=== PATIENT | female | born 1975 | race Caucasian/White ===

== ENCOUNTER 2025-01-11 09:46 | Outpatient (AMB) | payer OTHER, SELFPAY ==
--- OUTSIDE RECORDS SUMMARY | 2025-01-11 10:16 | XMS_ITS | Clinical Summary ---
[facility] Organization [facility] Address [address] [place] [address] Care Team Providers Care Chamfering Machine Operator Name Role Phone Vianca Damon MD Unavailable [phone] Vianca Damon MD Primary Care Provider [phone] Allergies No known active allergies Medications fluticasone propionate (FLONASE) 50 mcg/actuation nasal spray USE 1 SPRAY INTRANASALLY DAILY ADMINISTER INTO EACH NOSTRIL 4 Active SUMAtriptan (IMITREX) 100 mg tablet 4 Active Junel 1.5/30, 21, 1.5-30 mg-mcg tablet 4 Active ibuprofen 800 mg tablet TAKE 1 TABLET BY MOUTH THREE TIMES A DAY NEEDED FOR PAIN 3 Active cetirizine (ZyrTEC) 10 mg tablet Take 10 mg by mouth in the morning. 3 Active cholecalciferol , vitamin D3, (Vitamin D3) 50 mcg (2,000 unit) tablet Take by mouth. Ac tive omeprazole (PriLOSEC) 20 mg capsule Take 20 mg by mouth in the morning. Active magnesium oxide 500 mg magnesium tablet Take by mouth. Activ e riboflavin, vitamin B2, 400 mg tablet Take by mouth. Activ e co-enzyme Q-10 30 mg capsule Take 30 mg by mouth in the morning and 30 mg at noon and 30 mg before bedtime. Active cranberry extract 425 mg capsule Take by mouth. Activ e ELDERBERRY FRUIT ORAL Take by mouth. Acti ve TERRI LEAF, BULK, MISC Active b complex vitamins capsule Take 1 capsule by mouth in the morning. Active glucosamine-cho ndroitin (Osteo Bi-Flex) 250-200 mg tablet Take by mouth. Activ e multivitamin with folic acid (THERAGRAN) 400 mcg tablet Take 1 tablet by mouth in the morning. Active calcium carbonate (TUMS) 200 mg calcium (500 mg) chewable tablet Take by mouth daily. 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 She states that foods now smell disgusting to her where they used to smell quite good previously. Patient has a history of having had smell loss associated with the COVID infection in 2020. At that time she did lose her smell but regained it almost back to normal when she suffered a concussion in 2021 and since that time patient has noticed a parosmia. Normal smells smells disgusting to her and it has really affected her appetite. She has had a normal CT scan. Patient does have a history of reflux and is on reflux medication. I did talk with her about olfactory training and we will get that started for her with the protocol as listed below. Patient does have propane heating for the house. I did talk to her about getting a natural gas detector that she can buy at [employer] or [employer]. If the patient puts food in the refrigerator she should put the date on it and anything more than 7 days should get looked at suspiciously. I did tell the patient there were new therapy such as platelet rich plasma injections but we have not begun to do that yet. We will get her scheduled for a smell test as soon as we are up and running later this summer. Home Smell Therapy Kit Items to Purchase: 4 ? brown/cecile glass jars? (Size: 50 mL or 2 oz) Cotton Pads/Balls Essential Oils Sandy ([place]) Lemon (Fruity) Clove (Aromatic) Eucalyptus (Resinous) Preparation: Label each jar with one of the essential oils On cotton balls/pads, place 1 mL of each essential oil Place the cotton ball/pad in the jar and store away from sunlight Directions for Use: Sniff EACH odor TWICE a day (morning & night) Smell each odor for 15 seconds then wait 10 seconds between odors After three months change oils to the following Menthol Thyme [place] Shayna Use new oils for an additional three months then change to the following Green Tea Bergamot Diane Whit Use these three for an additional 3 months Post covid-19 condition, unspecified 05/11/2024 Assessment & Plan (05/11/2024 12:10 PM EDT): Patient did have COVID in 2020 she has smell loss that lasted for approximately a year after. History of concussion 05/11/2024 Assessment & Plan (05/11/2024 12:11 PM EDT): Patient has a history of concussion that occurred in 2021 she has had decreased and change in her sense of smell that occurred after that. This may have been due to trauma to the olfactory bulbs secondary to coup countercoup movement of the brain. She is recovering but now has a parosmia. Will try and treat her with smell therapy. Social History Tobacco Use Types Packs/Day Years Used Date Smoking Tobacco: Former Cigarettes Smokeless Tobacco: Never Tobacco Cessation:Counseling Given: Not Answered Comments Unknown Sex and Gender Information Value Date Recorded Sex Assigned at Not on file Legal Sex Female 12:32 PM EDT Gender Identity Not on file Sexual Orientation Not on file Last Filed Vital Signs Vital Sign Reading Time Taken Comments Blood Pressure 125/75 05/11/2024 11:24 AM EDT Pulse 91 05/11/2024 11:24 AM EDT Temperature - - Respiratory Rate - - Oxygen Saturation - - Inhaled Oxygen Concentration - - Weight 68 kg (150 lb) 05/11/2024 11:24 AM EDT Height 162.6 cm (5' 4 ) 05/11/2024 11:24 AM EDT Body Mass Index 25.75 05/11/2024 11:24 AM EDT Plan of Treatment Health Maintenance Due Date Last Done Comments Breast Cancer Screening 1976 CT Colonography 1976 Colonoscopy 1976 Colorectal Cancer Screening 1976 FIT-DNA (Cologuard) 1976 FIT 1976 FOBT 1976 Flex Sigmoidoscopy - 5y 1976 HIV Screening 1976 DTaP,Tdap,and Td Vaccines (1 - Tdap) 1994 Hepatitis C Screening 1994 Hepatitis B Vaccines (1 of 3 - 19+ 3-dose series) 1995 Pap Smear 1997 Cervical Cancer Screening 2006 HPV/Cotest 2006 COVID-19 Vaccine (1 - 2023-2 5 season) 2024 Influenza Vaccine (#1) 2024 Zoster Vaccines (1 of 2) 2026 HPV Vaccines Aged Out No longer eligi ble based on patient's age to complete this topic Hepatitis A Vaccines Aged Out No long er eligible based on patient's age to complete this topic MMR Vaccines Aged Out No longer eligi ble based on patient's age to complete this topic Meningococcal Vaccine Aged Out No kaiden marisol eligible based on patient's age to complete this topic Pneumococcal Vaccine: Pediat rics (0 to 5 Years) and At-Risk Patients (6 to 64 Years) Aged Out No longer eligible b ased on patient's age to complete this topic Insurance [employer] Care Teams Chamfering Machine Operator Relationship Specialty Start Date End Date Vianca Damon MD [address] [place] [phone] PCP - Insurance Payer PCP 05/09/24 Vianca Damon MD [address] [place] [phone] PCP - General Internal Medicine 05/09/24
--- OUTSIDE RECORDS SUMMARY | 2025-01-11 10:16 | XMS_ITS | Clinical Summary ---
Author Organization Formerly [facility] Address [address] [place] [address] Care Team Providers Care Certified Medical Biller Name Role Phone Pcp, No Primary Care Provider Unavailabl e Social History Tobacco Use Types Packs/Day Years Used Date Smoking Tobacco: Never Assessed Sex and Gender Information Value Date Recorded Sex Assigned at Not on file Gender Identity Not on file Sexual Orientation Not on file Plan of Treatment Health Maintenance Due Date Last Done Comments Hepatitis C Virus Screening 1976 HIV Screening 1989 DTaP/Tdap/Td Vaccines (1 - Tdap) 1995 Hepatitis B Vaccines (1 of 3 - 19+ 3-dose series) 1995 Pap Smear (Ages 21-65) 1997 Mammogram 2016 Colonoscopy 2021 Influenza Vaccine 06/28/2024 COVID-19 Vaccine (2023-2 5 season) 2024 Pneumococcal Vaccine: Pediat kei (0-5 Years) and At-Risk Patients (6 to 49 Years) Aged Out No longer eligible b ased on patient's age to complete this topic Care Teams Certified Medical Biller Relationship Specialty Start Date End Date Pcp, No PCP - General General Medicine 04/17/24
--- OUTSIDE RECORDS SUMMARY | 2025-01-11 10:16 | XMS_ITS ---
Author Name [facility] Organization Unknown History of Medication Use Medication Directions Dispensed Refills Start Date End Date Stat ibuprofen 800 mg tablet TAKE 1 TABLET BY MOUTH THREE TIMES A DAY NEEDED FOR PAIN 11/23/2023 active co-enzyme Q-10 30 mg capsule Take 30 mg by mouth in the morning and 30 mg at noon and 30 mg before bedtime. active omeprazole (PriLOSEC) 20 mg capsule Take 20 mg by mouth in the morning. active SUMAtriptan (IMITREX) 100 mg tablet 04/28/2024 active riboflavin, vitamin B2, 400 mg tablet Take by mouth. act rafaela Problems Problem Status Onset Date Problem Type Date of Resoluti on Source Post covid-19 condition, unspecified active 2024-05-11 ProblemAct [facility] Parosmia active 2024-05-11 ProblemAct [facility] History of concussion active 2024-05-11 ProblemAct [facility]
--- NOTE | 2025-01-11 10:31 | MHC.PC.OV ---
Vital Signs 01/11/25 10:56 Height 5 ft 4 in Weight 132 lb 8 oz BMI 22.7 BP 100/60 Blood Pressure Location Lt brachial Position Sitting Respiration 14 Pulse 91 Pulse Source Pulse Oximeter Temp 98.6 F Temp Source Oral Pulse Oximetry (%) 99 Oxygen Delivery Method Room Air Intake Visit Reasons: [employer]/Est Care Allergies ciprofloxacin [From Cipro] Adverse Reaction (Intermediate, Verified 01/11/25 10:48) Vomiting codine Adverse Reaction (Severe, Uncoded 01/11/25 10:48) Vomiting Medication List - Last Reconciled 01/11/25 by Lauro Dior MD cranberry extract 200 mg PO DAILY ibuprofen 800 mg PO Q8H PRN 90 days omeprazole 10 mg PO DAILY Saccharomyces boulardii (Daily Probiotic (S. boulardii)) 250 mg PO BID HPI [employer]/Est Care HPI Details New Patient? ?? Prior PCP:?Dr Banks [facility] Last office visit/CPE:? Nov 2023 Acute issue(s):? Perimenopause, Bilateral arm pain - will be seeing specialist at pain clinic - uses gabapentin ?? PMHx:? 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 Dad: CVA, EtOH. mGM: EtOH. 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 EtOH 1-2 drinks a couple times a year. MJ Gummies at bedtime. [facility] Medical History (Updated 01/11/25 @ 11:36 by Shadi Fuller) Head injury Tricia-menopausal delivery delivered Pineal gland cyst UTI (urinary tract infection) GERD (gastroesophageal reflux disease) Migraine IBS (irritable bowel syndrome) Surgical History (Updated 01/11/25 @ 10:40 by Raulito Jerez CMA) History of dermoid cyst excision History of cholecystectomy Family History (Updated 01/11/25 @ 10:45 by Raulito Jerez CMA) Mother High blood pressure Maternal Grandmother High blood pressure Alcohol-induced persisting dementia Alcohol abuse Maternal Grandfather Lung cancer Alcohol abuse Paternal Grandmother Cervical cancer Alcohol abuse Paternal Grandfather Suicide Family/Other FH: mental illness Father Alcohol abuse Social History (Updated 01/11/25 @ 10:45 by Raulito Jerez [facility]) Use of substances other than those prescribed or required for medical reasons: No Substance Use Type: Marijuana Questionnaire PHQ-9 Over the last 2 weeks, how often have you been bothered by any of the following problems? 1. Little interest or pleasure in doing things: not at all 2. Feeling down, depressed, or hopeless: not at all 3. Trouble falling or staying asleep, or sleeping too much: not at all 4. Feeling tired or having little energy: not at all 5. Poor appetite or overeating: not at all 6. Feeling bad about yourself - or that you are a failure or have let yourself or your family down: not at all 7. Trouble concentrating on things, such as reading the newspaper or watching television: not at all 8. Moving or speaking so slowly that other people could have noticed. Or the opposite - being so fidgety or restless that you have been moving around a lot more than usual: not at all 9. Thoughts that you would be better off or of hurting yourself in some way: not at all Total score: 0 Depression Screening Interpretation: Negative Depression Screening Done: Yes 37648 - PHQ-9 Billing: Yes Source: Developed by Drs. Javier Mora, Ayah Heredia, Maksim Lucio and colleagues, with an educational elvis from [employer]. Thrive Questionnaire Date Thrive assessed: 01/11/25 I am a: Patient What is your living situation today?: I have a steady place to live Within the past 12 months, did the food you bought not last and you didn't have the money to get more?: Never true Within the past 12 months, did you worry whether your food would run out before you got money to buy more?: Never true Do you have trouble paying for medicines?: No Do you have trouble getting transportation to medical appointments?: No Do you have trouble paying your heating and electricity bill?: No Do you have trouble taking care of your child, family member or friend?: No Do you have trouble with day-to-day activities such as bathing, preparing meals, shopping, managing finances, etc.?: No Are you currently unemployed and looking for a job?: No Are you interested in more education?: No Please select the resources that you would like help with: None Currently or been in a relationship where the following occur: I choose not to answer THRIVE Score: 0 AUDIT C Alcohol Use Questionnaire (AUDIT-C) 1. How often do you have a drink containing alcohol?: Never 3. How often do you have six or more drinks on one occasion?: Never Total Score: 0 Score Reviewed/Action Taken: Yes MILLY-7 AMB Questionnaire MILLY-7 Date MILLY - 7 assessed: 01/11/25 Feeling nervous, anxious, or on edge: 0 = Not at all Not being able to stop or control worryin = Not at all Worrying too much about different things: 0 = Not at all Trouble relaxin = Not at all Being so restless that it is hard to sit still: 0 = Not at all Becoming easily annoyed or irritable: 0 = Not at all Feeling afraid as if something awful might happen: 0 = Not at all Total MILLY-7 score (0-4 normal; 5-9 mild; 10-14 moderate; 15-21 severe): 0 Source: Developed by Drs. Javier Mora, Ayah Heredia, Maksim Lucio and colleagues, with an educational elvis from [employer]. MILLY-7 Assessment Billing MILLY-7 Assessment Tool: MILLY-7 Assessment 55063 Review of Systems Const Denies chills, Denies fatigue, Denies fever(s), Denies headache(s) and Denies weakness ENT Denies dizziness and Denies headache(s) Card Denies chest pain, Denies lightheadedness, Denies dyspnea and Denies other (Palpitations) Resp Denies cough, Denies dyspnea, Denies wheezing and Denies other ( shortness of breath) Musc Denies numbness and Denies tingling Neuro Denies dizziness, Denies headache(s), Denies numbness, Denies tingling, Denies paresthesias and Denies weakness Psych Denies anxiety and Denies depression Endo Denies fatigue Aller/Immun Denies wheezing Physical exam (Primary Care) PHQ-9: PHQ-9 Score PHQ-9: Total score 0 01/11/25 10:50 Depression Screening Interpretation: Negative Thrive Assessment: Date of Thrive Assessment Date Thrive assessed 01/11/25 01/11/25 10:50 Currently or been in a relationship where the following occur: I choose not to answer Const General: no acute distress and well developed Nutritional Appearance: well nourished Orientation/consciousness: patient oriented x3 [facility] Head: Yes normocephalic and Yes atraumatic Eyes General: appearance normal, both eyes and all related structures Pupils: Equal, round and reactive pupils present EOM: EOMs intact bilaterally Resp Effort & Inspection: normal respiratory effort Auscultation: clear to auscultation bilaterally Cardio Rate: regular rate Rhythm: regular rhythm Heart sounds: S1 normal heart sound present, S2 normal heart sound present, no gallops, no murmurs and no rubs Neuro General: patient oriented x3 and gait normal Cranial nerves: Yes Equal, round and reactive pupils present Psych Affect: normal affect Coding Level of Care Code New Pt Level 4 (89091) Diagnoses Tricia-menopausal N95.1 Migraine G43.909 GERD (gastroesophageal reflux disease) K21.9 Bilateral arm pain M79.601; M79.602 Head injury S09.90XA Anxiety F41.9 Frequent episodes of sinusitis J32.9 IBS (irritable bowel syndrome) K58.9 Chronic pain G89.29 Laboratory exam ordered as part of routine general medical examination Z00.00 Additional Codes MILLY-7 Assessment Billing - MILLY-7 Assessment Tool: MILLY-7 Assessment 63330 ([id number]) PHQ-9 - 52152 - PHQ-9 Billing: Yes ([id number]) Assessment & Plan Assessment & Plan (1) Tricia-menopausal: Code(s): N95.1 - Menopausal and female climacteric states Category: Medical Plan: Patient?is?taking?supplements?and?followed?by?her?obgyn nurse. I?did?mention?that?there?is?a?newer?medication?called Veozah for?hot?flashes?she?read?this. She?can?let?know?if?she?wants?to?try?this?medication?or?can?discuss?with?her?obgyn nurse (2) Migraine: Code(s): G43.909 - Migraine, unspecified, not intractable, without status migrainosus Category: Medical Plan: Chronic?migraines Uses Triptans?for?this.??She?had?tried?Lamictal?which?she?had?very?bad?reactions?to She?can?let?know?if?she?wants?to?consider?additional?treatments?or?referral?to?a?specialist (3) GERD (gastroesophageal reflux disease): Code(s): K21.9 - Gastro-esophageal reflux disease without esophagitis Category: Medical Plan: Continue?PPI (4) Bilateral arm pain: Code(s): M79.601 - Pain in right arm; M79.602 - Pain in left arm Category: Medical Plan: Bilateral?arm?pain?and?other?chronic?pain?issues?for?which?she?is?going?to?be?seeing?pain?specialist He?is?on?gabapentin?which?is?helping No?neck?problems Unclear?cause Briefly?discussed?some?of?the?locations?opinion?that?she?had?referred?to?could?represent?fibromyalgia She?can?continue?gabapentin,?continue?exercise,?follow-up?with?specialist She?will?let?know?if?he?is?still?having?difficulty (5) Head injury: Code(s): S09.90XA - Unspecified injury of head, initial encounter Category: Medical Plan: History?of?head?injury Currently?stable (6) Anxiety: Code(s): F41.9 - Anxiety disorder, unspecified Category: Medical Plan: Patient?has?numerous?stressors She?has?a?therapist She?can?let?know?if?she?wants?to?discuss?further?interventions (7) Frequent episodes of sinusitis: Code(s): J32.9 - Chronic sinusitis, unspecified Category: Medical Plan: Currently?stable (8) IBS (irritable bowel syndrome): Code(s): K58.9 - Irritable bowel syndrome, unspecified Category: Medical Plan: Often?associated?with?high?stress?and?anxiety She?can?let?me?know?if?further?interventions (9) Chronic pain: Code(s): G89.29 - Other chronic pain Category: Medical Plan: As?above,?patient?is?gabapentin She?has?an?remain?with?pain?specialist (10) Laboratory exam ordered as part of routine general medical examination: Code(s): Z00.00 - Encounter for general adult medical examination without abnormal findings Category: Medical Plan: Check?labs Orders: Orders Microalbumin, Random (w Creat) Today I10 - Essential (primary) hypertension UA and rflx microscopic Today Z00.00 - Encounter for general adult medical examination without abnormal findings Vitamin D 25-OH Total Today E55.9 - Vitamin D deficiency, unspecified Complete Blood Count Auto Diff Today Z00.00 - Encounter for general adult medical examination without abnormal findings Vitamin B12 and Folate Today E53.8 - Deficiency of other specified B group vitamins Comprehensive [place]. Panel Fast Today Z00.00 - Encounter for general adult medical examination without abnormal findings Lipid Panel Today Z00.00 - Encounter for general adult medical examination without abnormal findings TSH reflex Free T4 Today Z00.00 - Encounter for general adult medical examination without abnormal findings Medications: New ibuprofen 800 mg PO Q8H 90 days PRN 270 tabs 2RF pain
[2025-01-11 10:56] VITALS: BP 100/60; PULSE 91; RESP 14; TEMP 37; O2SAT 99; BMI 22.7
== END 2025-01-11 11:43 | disposition home or self-care (01) ==
PROVIDERS: Visit Provider Family Medicine
DX: N95.1 Menopausal and female climacteric states (principal); G43.909 Migraine, unspecified, not intractable, without status migrainosus; K21.9 Gastro-esophageal reflux disease without esophagitis; M79.601 Pain in right arm; M79.602 Pain in left arm; S09.90XA Unspecified injury of head, initial encounter; F41.9 Anxiety disorder, unspecified; J32.9 Chronic sinusitis, unspecified; K58.9 Irritable bowel syndrome, unspecified; G89.29 Other chronic pain; Z00.00 Encounter for general adult medical examination without abnormal findings; Z23 Encounter for immunization

== ENCOUNTER → 2025-01-11 09:46 | Outpatient (BNVA) | payer OTHER, SELFPAY | PROVIDERS: Visit Provider Family Medicine | DX: N95.1 Menopausal and female climacteric states (principal); G43.909 Migraine, unspecified, not intractable, without status migrainosus; Z23 Encounter for immunization; K21.9 Gastro-esophageal reflux disease without esophagitis; M79.601 Pain in right arm; M79.602 Pain in left arm; S09.90XD Unspecified injury of head, subsequent encounter; F41.9 Anxiety disorder, unspecified; J32.9 Chronic sinusitis, unspecified; K58.9 Irritable bowel syndrome, unspecified; G89.29 Other chronic pain; Z79.899 Other long term (current) drug therapy | CPT/HCPCS: 90471; 90656; 96127 ==

== ENCOUNTER 2025-02-01 09:56 | Outpatient (REF) | payer OTHER, SELFPAY ==
--- OUTSIDE RECORDS SUMMARY | 2025-02-01 11:08 | XMS_ITS | Clinical Summary ---
Author Organization [facility]ly [facility] Address [address] [place] [address] Care Team Providers Care Behavior Support Specialist Name Role Phone Pcp, No Primary Care [...] age to complete this topic Care Teams Behavior Support Specialist Relationship Specialty Start Date End Date Pcp, No PCP - General General Medicine 04/17/24
--- OUTSIDE RECORDS SUMMARY | 2025-02-01 11:08 | XMS_ITS | Clinical Summary ---
Author Organization [facility]ly [facility] Address [address] [place] [address] Care Team Providers Care Sap Business Intelligence Consultant Name Role Phone Vianca Damon MD Unavailable Vianca Damon MD Primary Care Provider [phone] Allergies No known active allergies Medications [...] gas detector that she can buy at [employer] or [employer]. If the patient puts food in the [...] 2 oz) Cotton Pads/Balls Essential Oils Sandy ([place]) Lemon (Fruity) Clove (Aromatic) Eucalyptus (Resinous) Preparation: [...] change oils to the following Menthol Thyme [place] Shayna Use new oils for an additional [...] this topic Insurance [employer] Care Teams Sap Business Intelligence Consultant Relationship Specialty Start Date End Date Vianca Damon MD [address] [place] [phone] PCP - Insurance Payer PCP 05/09/24 Vianca Damon MD [address] [place] [phone] PCP - General Internal Medicine 05/09/24
[2025-02-01 11:21] LABS: MANUAL DIFF FLAG NO
[2025-02-01 11:32] LABS: Appearance Urine Clear; Color Urine Yellow; Glucose Urine UA Negative (Negative); Leukocyte Esterase Urine Negative (Negative); Nitrite Urine Negative (Negative); PH 7.5 (5.0-9.0); Specific Gravity - Urine <= 1.005 (1.005-1.025); Urine Blood Negative (Negative); Urine Ketones Negative (Negative); Urine Protein Negative (Neg-Trace)
[2025-02-01 11:45] LABS: Basophils Percent Auto 0.5 % (0-2); Eosinophils Absolute Auto 0.2 X10*3/uL (0.0-0.4); Eosinophils Percent Auto 2.5 % (0-4); Hematocrit 42.4 % (37.0-47.0); Hemoglobin 13.7 g/dl (12.0-16.0); Imm Gran Abs Auto 0.01 X10*3/uL (0.00-0.03); Imm Gran Pct Auto 0.2 % (0.0-0.4); Lymphocytes Absolute Auto 2.9 X10*3/uL (1.2-4.9); Mean Corpuscular HGB Conc 32.3 g/dl (31.0-35.0); Mean Corpuscular Hemoglobin 30.9 pg (27.0-33.0); Mean Corpuscular Volume 95.5 fL (80.0-98.0); Mean Platelet Volume 10.4 fL (9.4-12.3); Monocytes Absolute Auto 0.4 X10*3/uL (0.1-1.2); Neutrophils Absolute Auto 2.5 x10*3/uL (2.0-8.3); Neutrophils Percent Auto 41.8 % (45-73); Platelet Count 394 X10*3/uL (160-400); Red Blood Count 4.44 X10*6/uL (4.20-5.50); Red Cell Distribution Width 12.3 % (11.0-16.0)
[2025-02-01 12:29] LABS: Alanine Aminotransferase 23 U/L (0-31); Albumin Level 4.1 g/dL (3.5-5.0); Alkaline Phosphatase 61 U/L (39-117); Anion Gap 11 (12-20); Aspartate Amino Transferase 29 U/L (5-31); Bilirubin Total 0.5 mg/dL (0.0-1.0); Blood Urea Nitrogen 15 mg/dL (9-16); Calcium 9.2 mg/dL (8.4-10.2); Carbon Dioxide 27 mmol/L (22-29); Chloride 105 mmol/L (96-108); Cholesterol 163 mg/dL (<200); Estimated Glomerular Filt Rate > 60; Glucose Fasting 87 mg/dL (60-99); HDL Cholesterol 46 mg/dL (>40); LDL Cholesterol Calculated 94 mg/dL (<100); Potassium 3.8 mmol/L (3.3-5.1); Sodium 139 mmol/L (135-145); Total Protein 7.8 g/dL (6.5-8.0); Triglycerides 115 mg/dL (<150)
[2025-02-01 12:36] LABS: Microalbumin Urine < 5.0 mg/L
[2025-02-01 12:48] LABS: TSH reflex Free T4 0.99 uIU/mL (0.32-4.0)
[2025-02-01 12:54] LABS: Folate 16.9 ng/mL (> or = 4.0); Vitamin B12 1084 pg/mL (200-900)
== END 2025-02-01 09:57 | disposition home or self-care (01) ==
LOC: HO.WFDLDS 09:56
PROVIDERS: Visit Provider Family Medicine
DX: Z00.00 Encounter for general adult medical examination without abnormal findings (principal); E53.8 Deficiency of other specified B group vitamins; I10 Essential (primary) hypertension; E55.9 Vitamin D deficiency, unspecified
CPT/HCPCS: 36415; 80053; 80061; 81003; 82043; 82306; 82570; 82607; 82746; 84443; 85025

== ENCOUNTER 2025-03-15 09:03 | Outpatient (AMB) | payer OTHER, SELFPAY ==
--- NOTE | 2025-03-15 09:04 | A.OFFPC_ITS ---
Vital Signs 03/15/25 09:09 Height 5 ft 4 in Weight 133 lb 6 oz BMI 22.9 BP 122/70 Blood Pressure Location Lt brachial Position Sitting Respiration 12 Pulse 79 Pulse Source Pulse Oximeter Temp 97.5 F Temp Source Oral Pulse Oximetry (%) 100 Oxygen Delivery Method Room Air Intake Visit Reasons: CPE - Dr. Arndt pt. Intake Note: CPE Phone Operator Required: No Allergies ciprofloxacin [From Cipro] Adverse Reaction (Intermediate, Verified 03/15/25 09:15) Vomiting codine Adverse Reaction (Severe, Uncoded 03/15/25 09:15) Vomiting Medication List - Last Reconciled 03/15/25 by Briana Nugent, RN MDS COORDINATOR-BC amino acid-multivit w/iron-min pkgs PO cetirizine (Zyrtec) 10 mg PO DAILY PRN cholecalciferol (vitamin D3) 25 mcg PO DAILY coenzyme Q10 60 mg PO DAILY collagen (bovine) 100% ea topical cranberry extract 200 mg PO DAILY elderberry fruit mg PO fluticasone furoate 27.5 mcg/actuation (Flonase Sensimist) 1 spray intranasal DAILY gabapentin 300 mg PO DAILY ibuprofen 800 mg PO Q8H PRN 90 days ibuprofen 800 mg PO Q8H magnesium 200 mg PO DAILY multivitamin 1 tab PO DAILY omeprazole 10 mg PO DAILY riboflavin (vitamin B2) mg PO Saccharomyces boulardii (Daily Probiotic (S. boulardii)) 250 mg PO BID sumatriptan succinate take 1 tab at onset of headache; if no relief may repeat 1 tab after at least 2 hrs; max = 4 tabs/24 hr PO vitamin B complex (B-Complex tablet) 1 tab PO DAILY Tobacco use date assessed: 03/15/25 Dental Screening Dental Screen Date: 03/15/25 Did you have a dental visit in the last 12 months?: Yes Did you have a dental problem in the last 6 months where you did not have access to dental care?: No Was dental information given to patient?: Patient has dentist HPI HPI Comments History of Present Illness Details 49 y/o F with Migraines, Head injury, p erimenopause, anosmia d/t head injury, Frequent Sinus infections, GERD, MILLY, Seasonal allergies, BPPV SurgHx: Pylonidal cysyt Ovarian dermoid cysts, GB, C-sect x 2 FHx: Mom: HTN, IBS. Dad: CVA, EtOH. mGM: EtOH. 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 EtOH 1-2 drinks a couple times a year. MJ Gummies at bedtime. Health Maintenance: Colon done in 's, no family hx; Declined colon; cologaurd ordered Mammo done, 11/20 or 11/2024 , report requested DEXA n/a PAP done by INVENTORY AUDIT CLERK Tdap declined Flu 2024 Specialists: Air Analysis Technician Counslor Pain mgmt PT bilat arm pain, better. Neuro Here today for CPE Patient of Dr Arndt - The patient is a 49-year-old female pr esenting for a complete physical examination with concerns of chronic migraines exacerbated by perimenopause, vertigo episodes suggestive of BPPV, severe GERD episode in recent months, and sinus infection history requiring ongoing management. 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 - Vertigo symptoms initiated by position al change; when turns head to the side sx start; head in neutral position resolves; this has been going on for some time; Sx are suggestive of BPPV. - Severe GERD episode reported in Januar y resulted in vomiting due to stress and high-fat diet; managed with omeprazole. - Dumping syndrome symptoms follow shaheed cystectomy, relate to dietary habits and stress. - Significant history of head trauma wit h persistent anosmia and altered dietary choices - Adverse reaction to lamotrigine given for mood and headaches in the past by previous PCP - Existing social stress factors include caregiving for a spouse with multiple chronic conditions and children with special psychological needs. - Perimenopausal symptoms include excess rafaela sweating and irregular bleeding; colon cancer screening discussed as Cologuard methodology acceptable due to prior colonoscopy experience. - Wears glasses for reading and distance . Family History - Positive for migraine headaches in mot her and grandmother - History of autism linked to son, sammie smiley indicator for familial preeclampsia Social History - Works as a therapist with a full-time private practice - Pursuing a doctorate in social work - Manages a household with significant c aregiving responsibilities for with chronic illness, an autistic son, and adolescent daughter with anxiety. - Engages in regular physical activity i ncluding strength training, cardio, and kickboxing approximately five to six times per week. 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 - HEENT: Denies current infections but f requent history; reports chronic anosmia post head trauma. - Neurological: Reports episodic vertigo without migraine occurrence, managed with sumatriptan; dizziness worsened by position changes. - Gastrointestinal: Reports dumping synd elizabeth post cholecystectomy; severe GERD episodes managed with omeprazole. - Musculoskeletal: Reports frequent infl ammation and previous shoulder pain, managed with physical therapy. - Psychiatric: Reports generalized anxie ty, primarily stress-induced, and current self-management of insomnia. - Reproductive: Reports perimenopausal s ymptoms including sweating and menstrual irregularities. Physical Exam General: Well developed, well nourished, in no acute distress. Appears stated age. Head: Normocephalic, atraumatic. Sebaceous cyst noted on the head. Eyes: Pupils are equal, round and reactive to light and accommodation. Conjunc tivae are clear. Vision grossly normal. Ears: TMs clear AU, EACS WNL Nose: Patent, without discharge. Neck: Supple, no adenopathy or thyromegaly. Breast: Edu on SBE Lungs: Clear to auscultation bilaterally. No rales, rhonchi or wheeze noted. Good air flow in all wilson. Heart: Regular rate and rhythm. No murmurs, click, rubs or gallops are noted. Abdomen: Bowel sounds present in all quadrants. The abdomen is soft, nontender, with no masses or organomegaly noted. No hernias are noted. : Deferred. Reviewed recommendations for routine INVENTORY AUDIT CLERK Pulses: Peripheral pulses are equal and palpable bilaterally. Extremities: No clubbing, cyanosis nor edema is noted. Neurologic: Gait and station normal. Cranial Nerves 2-12 intact. Motor strength grossly symmetrical and intact. No sensory loss. Balance normal. Skin: No rashes, ulcers, or lesions noted. Turgor is good. Skin color is good. Hair and nails are without abnormalities. Psych: Normal eye contact, affect and mood appropriate, and normal interactions. Patient is alert and appropriate to context. Results Labs 02/01/25 reviewed and WNL Discussion Notes I discussed the likely diagnosis of Benign Paroxysmal Positional Vertigo (BPPV) based on the patient?s description of episodic dizziness exacerbated by positional changes. I explained the non-migraine nature of these events despite previous neurological consultations. Management options including chiropractic and vestibular physical therapy were discussed. She wishes to pursue Chiro and will send her preferred provider via the portal; referral to be placed at that time. We reviewed the patient?s GERD management with the current regimen, emphasizing lifestyle modifications. The patient's experience with severe GERD was attributed to dietary triggers and emphasizing caution with stress management. We discussed colon cancer screening options due to the patient?s reluctance to repeat the colonoscopy preparation. I recommended a Cologuard home test for colorectal screening. I advised monitoring perimenopausal changes for management but no immediate interventions. I emphasized the importance of annual wellness checks and suggested organization of records from other healthcare [facility] into a centralized system, pending patient's submissions. The importance of managing stress levels and assisting the family unit with coping strategies was highlighted. I advised the patient to send chiropractic preferences via patient portal for referral. Forthcoming follow-up scheduled within a year unless acute issues arise. Assessment and Plan 1. Migraine headaches The patient continues with sumatriptan due to hormonally induced migraine relief. Additional stress and diet management reiterated. 2. Benign Paroxysmal Positional Vertigo (BPPV) Likely BPPV diagnosis explained; chiropractic therapy recommended. Patient to provide preference for referral. 3. Gastroesophageal Reflux Disease (GERD ) Continue omeprazole; discussed dietary adjustments. Reinforcement on GERD educat ion and reducing stressors. 4. Perimenopause Follow up with regular wellness checks and screenings. Watchful waiting for fluctuating symptoms. 5. Colon cancer screening Cologuard test will be utilized for the patient?s colon cancer screening needs. 6. Dumping syndrome Patient to monitor dietary intake post-cholecystectomy, maintain current management approach. 7. Generalized Anxiety Disorder Support continues with stress reduction prioritization; no pharmacological intervention currently required. Patient Instructions - Continue taking prescribed sumatriptan for migraine relief. - Engage in dietary mindfulness to manag e GERD and dumping syndrome. - Consider chiropractic referral for laverne tigo after providing preferences. - Engage in stress reduction techniques and self-care measures. - Arrange Cologuard test for colorectal cancer screening. - Maintain regular health checks and scr eenings, including mammograms and Pap smears. RTO [address] Yris Sanabria Patient was informed and verbally consented to the use of an ambient scribe for clinic note documentation during this visit. An additional 20 minutes was spent addressing the problem(s) noted at todays visit. This includes time spent before the visit reviewing the chart, time spent during the visit, and time spent after the visit on documentation reviewing laboratory results, diagnostic imaging, medications, performing a medically necessary evaluation, counseling on diagnoses, care coordination, ordering appropriate tests, ordering appropriate medications, review of tests performed by other providers, reporting test results with the patient, communication with other healthcare providers. [facility] Medical History (Updated 03/15/25 @ 14:46 by ANKUR Durant-SUZI) delivery delivered GERD (gastroesophageal reflux disease) Head injury IBS (irritable bowel syndrome) Migraine Tricia-menopausal Pineal gland cyst UTI (urinary tract infection) Surgical History (Updated 03/15/25 @ 09:25 by ANKUR Durant-SUZI) History of cholecystectomy History of colonoscopy (~2006) History of dermoid cyst excision Family History Mother High blood pressure Maternal Grandmother High blood pressure Alcohol-induced persisting dementia Alcohol abuse Maternal Grandfather Lung cancer Alcohol abuse Paternal Grandmother Cervical cancer Alcohol abuse Paternal Grandfather Suicide Family/Other FH: mental illness Father Alcohol abuse Social History (Updated 03/15/25 @ 09:06 by Radha Arana MA) Household Members: Family Both parents involved: No Caregiver staying overnight: No Housing: House Are you a primary nurse healthcare manager to a significant other at home: No Do you presently have visiting nurse or other home services: No 75 years or older and lives alone: No Alcohol intake: never Patient Tobacco Use Status: Never used Tobacco e-Cigarette/Vaping Use: Never Used Second Hand Smoke Exposure: No Substance Use Type: Marijuana service: No Current occupational status: unemployed Cognitive needs: No Hearing needs: No Vision needs: No Questionnaire PHQ-9 Over the last 2 weeks, how often have you been bothered by any of the following problems? 1. Little interest or pleasure in doing things: not at all 2. Feeling down, depressed, or hopeless: not at all 3. Trouble falling or staying asleep, or sleeping too much: not at all 4. Feeling tired or having little energy: not at all 5. Poor appetite or overeating: not at all 6. Feeling bad about yourself - or that you are a failure or have let yourself or your family down: not at all 7. Trouble concentrating on things, such as reading the newspaper or watching television: not at all 8. Moving or speaking so slowly that other people could have noticed. Or the opposite - being so fidgety or restless that you have been moving around a lot more than usual: not at all 9. Thoughts that you would be better off or of hurting yourself in some way: not at all Total score: 0 Depression Screening Interpretation: Negative Depression Screening Done: Yes 60034 - PHQ-9 Billing: Yes Source: Developed by Drs. Javier Mora, Ayah Heredia, Maksim Lucio and colleagues, with an educational elvis from [email or web address]. Thrive Questionnaire Date Thrive assessed: 03/15/25 I am a: Patient What is your living situation today?: I have a steady place to live Within the past 12 months, did the food you bought not last and you didn't have the money to get more?: Never true Within the past 12 months, did you worry whether your food would run out before you got money to buy more?: Never true Do you have trouble paying for medicines?: No Do you have trouble getting transportation to medical appointments?: No Do you have trouble paying your heating and electricity bill?: No Do you have trouble taking care of your child, family member or friend?: No Do you have trouble with day-to-day activities such as bathing, preparing meals, shopping, managing finances, etc.?: No Are you currently unemployed and looking for a job?: No Are you interested in more education?: No Please select the resources that you would like help with: None Currently or been in a relationship where the following occur: I choose not to answer THRIVE Score: 0 AUDIT C Alcohol Use Questionnaire (AUDIT-C) 1. How often do you have a drink containing alcohol?: Never 2. How many drinks containing alcohol do you have on a typical day when you are drinking?: 1 or 2 3. How often do you have six or more drinks on one occasion?: Never Total Score: 0 Score Reviewed/Action Taken: Yes MILLY-7 AMB Questionnaire MILLY-7 Date MILLY - 7 assessed: 03/15/25 Feeling nervous, anxious, or on edge: 0 = Not at all Not being able to stop or control worryin = Not at all Worrying too much about different things: 0 = Not at all Trouble relaxin = Not at all Being so restless that it is hard to sit still: 0 = Not at all Becoming easily annoyed or irritable: 0 = Not at all Feeling afraid as if something awful might happen: 0 = Not at all Total MILLY-7 score (0-4 normal; 5-9 mild; 10-14 moderate; 15-21 severe): 0 Source: Developed by Drs. Javier Mora, Ayah Heredia, Maksim Lucio and colleagues, with an educational elvis from [email or web address]. MILLY-7 Assessment Billing MILLY-7 Assessment Tool: MILLY-7 Assessment 38454 Physical exam (Primary Care) Vital Signs: Last Vital Signs Temp 97.5 F 03/15/25 09:09 Pulse 79 03/15/25 09:09 Resp 12 03/15/25 09:09 BP 122/70 03/15/25 09:09 Pulse Ox 100 03/15/25 09:09 Oxygen Delivery Method Room Air 03/15/25 09:09 BMI result Body Mass Index 22.9 Tobacco/Smoking Status: Tobacco use Status Tobacco use date assessed 03/15/25 03/15/25 09:09 Patient Tobacco Use Status Never used Tobacco 03/15/25 09:09 e-Cigarette/Vaping Use Never Used 03/15/25 09:09 PHQ-9: PHQ-9 Score PHQ-9: Total score 0 03/15/25 09:15 Depression Screening Interpretation: Negative Thrive Assessment: Date of Thrive Assessment Date Thrive assessed 03/15/25 03/15/25 09:05 Currently or been in a relationship where the following occur: I choose not to answer Coding Level of Care Code Est Pt Level 3 (92755) Est Pt Prev Care 40-64y(28627) Diagnoses Encounter for general adult medical examination with abnormal findings Z00.01 Gastroesophageal reflux disease without esophagitis K21.9 Esophagitis presence: without esophagitis Other chronic pain G89.29 Chronic pain type: other chronic pain Bilateral arm pain M79.601; M79.602 Anxiety F41.9 Benign paroxysmal positional vertigo due to bilateral vestibular disorder H81.13 Laterality: bilateral Tetanus, diphtheria, and acellular pertussis (Tdap) vaccination declined Z28.21 Additional Codes MILLY-7 Assessment Billing - MILLY-7 Assessment Tool: MILLY-7 Assessment 96040 ([id number]) PHQ-9 - 80340 - PHQ-9 Billing: Yes ([id number]) Assessment & Plan Assessment & Plan (1) Encounter for general adult medical examination with abnormal findings: Onset Date: ~02/2025 Code(s): Z00.01 - Encounter for general adult medical examination with abnormal findings Category: Medical (2) GERD (gastroesophageal reflux disease): Code(s): K21.9 - Gastro-esophageal reflux disease without esophagitis Category: Medical Qualifiers: Esophagitis presence: without esophagitis Qualified Code(s): K21.9 - Gastro-esophageal reflux disease without esophagitis (3) Chronic pain: Code(s): G89.29 - Other chronic pain Category: Medical Qualifiers: Chronic pain type: other chronic pain Qualified Code(s): G89.29 - Other chronic pain (4) Bilateral arm pain: Code(s): M79.601 - Pain in right arm; M79.602 - Pain in left arm Category: Medical (5) Anxiety: Code(s): F41.9 - Anxiety disorder, unspecified Category: Medical (6) BPPV (benign paroxysmal positional vertigo): Code(s): H81.10 - Benign paroxysmal vertigo, unspecified ear Category: Medical Qualifiers: Laterality: bilateral Qualified Code(s): H81.13 - Benign paroxysmal vertigo, bilateral (7) Tetanus, diphtheria, and acellular pertussis (Tdap) vaccination declined: Code(s): Z28.21 - Immunization not carried out because of patient refusal Category: Medical Plan . Orders: Referrals Cologuard Test Z12.11 - Encounter for screening for malignant neoplasm of colon, Z12.12 - Encounter for screening for malignant neoplasm of rectum Patient Instructions: Health screenings for women You should visit your health care provider from time to time, even if you are healthy. The purpose of these visits is to: Screen for medical issues Assess your risk for future medical problems Encourage a healthy lifestyle Update vaccinations and other preventive care services Help you get to know your provider in case of an illness Information Even if you feel fine, you should still see your provider for regular checkups. These visits can help you avoid problems in the future. For example, the only way to find out if you have high blood pressure is to have it checked regularly. High blood sugar and high cholesterol levels also may not have any symptoms in the early stages. A simple blood test can check for these conditions. There are specific times when you should see your provider or receive specific health screenings. The [place] Preventive Services Task Force publishes a list of recommended screenings. Below are screening guidelines for women ages 18 to 39. BLOOD PRESSURE SCREENING Your blood pressure should be checked at least once every 3 to 5 years if: Your blood pressure is in the normal range (top number less than 120 mm Hg and bottom number less than 80 mm Hg) You don't have risk factors for high blood pressure Ask your provider if you need your blood pressure checked more often if: The top number is 120 to 129 mm Hg or the bottom number is 70 to 79 mm Hg You have diabetes, heart disease, kidney problems, are overweight, or have certain other health conditions You have a first-degree relative with high blood pressure You are Black You had high blood pressure during a If the top number is 130 mm Hg or greater or the bottom number is 80 mm Hg or greater, this is considered stage 1 hypertension. Schedule an appointment with your provider to learn how you can reduce your blood pressure. Watch for blood pressure screenings in your area. Ask your provider if you can stop in to have your blood pressure checked. BREAST CANCER SCREENING Experts do not agree about the benefits of breast self-exams in finding breast cancer or saving lives. Talk to your provider about what is best for you. A screening mammogram is not recommended for most women under age 40. Your provider may discuss and recommend mammograms, MRI scans, or ultrasounds if you have an increased risk for breast cancer, such as: A mother or sister who had breast cancer at a young age (most often starting screening earlier than the age the close relative was diagnosed) You carry a high-risk genetic marker CERVICAL CANCER SCREENING Cervical cancer screening should start at age 21 years unless your provider advises otherwise. After the first test: Women ages 21 through 29 should have a Pap test every 3 years. Exoprts do not agree on whether HPV testing is recommended for this age group. Women ages 30 through 65 should be screened with either a Pap test every 3 years or the HPV test every 5 years or both tests every 5 years (called cotesting ). Women who have been treated for precancer (cervical dysplasia) should continue to have Pap tests for 20 years after treatment or until age 65, whichever is kaiden marisol. If you have had your uterus and cervix removed (total hysterectomy), and you have not been diagnosed with cervical cancer or precancer (high grade cervical neoplasia), you do not need cervical cancer screening. CHOLESTEROL SCREENING Cholesterol screening should begin at: Age 45 for women with no known risk factors for coronary heart disease Age 20 for women with known risk factors for coronary heart disease Repeat cholesterol screening should take place: Every 5 years for women with normal cholesterol levels More often if changes occur in lifestyle (including weight gain and diet) More often if you have diabetes, heart disease, kidney problems, or certain other conditions DIABETES SCREENING You should be screened for diabetes starting at age 35 and then repeated every 3 years if you have no risk factors for diabetes. Screening may need to start earlier and be repeated more often if you have other risk factors for diabetes, such as: You have a first degree relative with diabetes. You are overweight or have obesity. You have high blood pressure, prediabetes, or a history of heart disease. Screening for diabetes should be done if you are planning to become and you are overweight and have other risk factors such as high blood pressure. DENTAL EXAM Go to the dentist once or twice every year for an exam and cleaning. Your dentist will evaluate if you need more frequent visits. EYE EXAM Have an eye exam every 5 to 10 years before age 40. If you have vision problems, have an eye exam every 2 years or more often if recommended by your provider. You should have an eye exam that includes an examination of your retina (back of your eye) at least every year if you have diabetes. IMMUNIZATIONS Commonly needed vaccines include: Flu shot: get one every year. COVID-19 vaccine: ask your provider what is best for you. Tetanus-diphtheria and acellular pertussis (Tdap) vaccine: have one at or after age 19 as one of your tetanus-diphtheria vaccines if you did not receive it as an adolescent. Tetanus-diphtheria: have a booster (or Tdap) every 10 years. Varicella vaccine: receive 2 doses if you never had chickenpox or the varicella vaccine. Hepatitis B vaccine: receive 2, 3, or 4 doses, depending on your exact circumstances. Measles, mumps, and rubella (MMR) vaccine: receive 1 to 2 doses if you are not already immune to MMR. Your provider can tell you if you are immune. Ask your provider about the human papillomavirus (HPV) vaccine if: You have not received the HPV vaccine in the past You have not completed the full vaccine series (you should catch up on this shot) Ask your provider if you should receive other immunizations if you have certain health problems that increase your risk for some diseases such as pneumonia. INFECTIOUS DISEASE SCREENING Women who are sexually active should be screened for chlamydia and gonorrhea up until age 25. Women 25 years and older should be screened for chlamydia and gonorrhea if at high risk. Screening for hepatitis C: All adults ages 18 to 79 should get a one-time test for hepatitis C. people should be screened at every . Screening for human immunodeficiency virus (HIV): All people ages 15 to 65 should get a one-time test for HIV. Depending on your lifestyle and medical history, you may also need to be screened for infections such as syphilis and HIV, as well as other infections. PHYSICAL EXAM All adults should visit their provider from time to time, even if they are healthy. The purpose of these visits is to: Screen for disease Assess your risk of future medical problems Encourage a healthy lifestyle Update your vaccinations and other preventive care services Maintain a relationship with a provider in case of an illness Your height, weight, and BMI should be checked at every exam. During your exam, your provider may ask you about: Depression and anxiety Diet and exercise Alcohol and tobacco use Safety issues, such as using seat belts, smoke detectors, and intimate partner violence Your medicines and risk for interactions SKIN SELF-EXAM Your provider may check your skin for signs of skin cancer, especially if you're at high risk, such as if you: Have had skin cancer before Have close relatives with skin cancer Have a weakened immune system OTHER SCREENING Talk with your provider about colon cancer screening if you have a strong family history of colon cancer or polyps, or if you have had inflammatory bowel disease or polyps yourself. Routine bone density screening of women under 40 is not recommended.
[2025-03-15 09:09] VITALS: BP 122/70; PULSE 79; RESP 12; TEMP 36.4; O2SAT 100; BMI 22.9
--- OUTSIDE RECORDS SUMMARY | 2025-03-15 09:29 | XMS_ITS | Clinical Summary ---
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 Phone Pcp, No Primary Care Provider Unavailabl e Social History Tobacco Use Types Packs/Day Years Used Date Smoking Tobacco: Never Assessed Comments Unknown Sex and Gender Information Value Date Recorded Sex Assigned at Not on file Legal Sex Female 1:57 PM EDT Gender Identity Not on file Sexual Orientation Not on file Plan of Treatment Health Maintenance Due Date Last Done Comments Hepatitis C Virus Screening 1976 HIV Screening 1989 DTaP/Tdap/Td Vaccines (1 - Tdap) 1995 Hepatitis B Vaccines (1 of 3 - 19+ 3-dose series) 1995 Pap Smear (Ages 21-65) 1997 Mammogram 2016 Colonoscopy 2021 Influenza Vaccine 06/28/2024 COVID-19 Vaccine ( - 2023-2 5 season) 2024 Pneumococcal Vaccine: Pediat kei (0-5 Years) and At-Risk Patients (6 to 49 Years) Aged Out No longer eligible b ased on patient's age to complete this topic Insurance [facility] Care Teams Concrete Mixing Truck Driver Relationship Specialty Start Date End Date Pcp, Ngoc PCP - General General Medicine 04/17/24
--- OUTSIDE RECORDS SUMMARY | 2025-03-15 09:29 | XMS_ITS | Clinical Summary ---
Author Organization [facility] Address [address] [place] [id number] Care Team Providers Care Head Of History Name Role Phone Vianca Damon MD Unavailable [phone] Vianca Damon MD Primary Care Provider [phone] Allergies No known active allergies Medications [...] gas detector that she can buy at [employer] or [employer]. If the patient puts food in the [...] 2 oz) Cotton Pads/Balls Essential Oils Sandy ([place]) Lemon (Fruity) Clove (Aromatic) Eucalyptus (Resinous) Preparation: [...] change oils to the following Menthol Thyme [place] Shayna Use new oils for an additional [...] - 2023-2 5 season) 2024 Influenza Vaccine (Season Ended) 2025 Zoster Vaccines (1 of 2) 2026 HPV [...] 5 Years) and At-Risk Patients (6 to 49 Years) Aged Out No longer eligible b ased on patient's age to complete this topic Insurance [employer] Care Teams Head Of History Relationship Specialty Start Date End Date Vianca Damon MD [address] [place] [phone] PCP - Insurance Payer PCP 05/09/24 Vianca Damon MD [address] [place] [phone] PCP - General Internal Medicine 05/09/24
== END 2025-03-15 09:39 | disposition home or self-care (01) ==
LOC: HO.HMCFM 09:04
PROVIDERS: PCP Family Medicine; Visit Provider Nurse Practitioner Family
DX: Z00.01 Encounter for general adult medical examination with abnormal findings (principal); K21.9 Gastro-esophageal reflux disease without esophagitis; G89.29 Other chronic pain; M79.601 Pain in right arm; M79.602 Pain in left arm; F41.9 Anxiety disorder, unspecified; H81.13 Benign paroxysmal vertigo, bilateral; Z28.21 Immunization not carried out because of patient refusal

== ENCOUNTER → 2025-03-15 09:03 | Outpatient (BNVA) | payer OTHER, SELFPAY | PROVIDERS: PCP Family Medicine; Visit Provider Nurse Practitioner Family | DX: Z00.01 Encounter for general adult medical examination with abnormal findings (principal); K21.9 Gastro-esophageal reflux disease without esophagitis; G89.29 Other chronic pain; M79.601 Pain in right arm; M79.602 Pain in left arm; F41.1 Generalized anxiety disorder; H81.13 Benign paroxysmal vertigo, bilateral; G43.909 Migraine, unspecified, not intractable, without status migrainosus; K91.1 Postgastric surgery syndromes; Z28.21 Immunization not carried out because of patient refusal | CPT/HCPCS: 96127 ==

== ENCOUNTER 2025-09-30 09:54 | Outpatient (AMB) | payer OTHER, SELFPAY ==
--- NOTE | 2025-09-30 10:01 | MHC.PC.OV ---
Vital Signs 09/30/25 10:12 Height 5 ft 4 in Weight 143 lb BMI 24.5 BP 104/70 Blood Pressure Location Lt brachial Position Sitting Respiration 19 Pulse 115 H Pulse Source Pulse Oximeter Temp 97.9 F Temp Source Oral Pulse Oximetry (%) 99 Oxygen Delivery Method Room Air Intake Visit Reasons: Neck pain Intake Note: patient is scheduled for a sick visit for cervical radiculopathy pt was prescribed methocarbamol and methylprednisolone with no relief pt was given a referral for PT. patient would also like flu shot today. Adult Services Librarian Required: No Allergies ciprofloxacin (From Cipro) Adverse Reaction (Intermediate, Verified 09/30/25 10:09) Vomiting codine Adverse Reaction (Severe, Uncoded 03/15/25 09:15) Vomiting Medication List - Last Reconciled 09/30/25 by Lauro Dior MD amino acid-multivit w/iron-min pkgs PO cetirizine (Zyrtec) 10 mg PO DAILY PRN cholecalciferol (vitamin D3) 25 mcg PO DAILY coenzyme Q10 60 mg PO DAILY collagen (bovine) 100% ea topical cranberry extract 200 mg PO DAILY elderberry fruit mg PO fluticasone furoate 27.5 mcg/actuation (Flonase Sensimist) 1 spray intranasal DAILY ibuprofen 800 mg PO Q8H PRN 90 days ibuprofen 800 mg PO Q8H magnesium 200 mg PO DAILY methocarbamol 500 mg PO methylprednisolone mg PO multivitamin 1 tab PO DAILY omeprazole 10 mg PO DAILY riboflavin (vitamin B2) mg PO Saccharomyces boulardii (Daily Probiotic (S. boulardii)) 250 mg PO BID sumatriptan succinate take 1 tab at onset of headache; if no relief may repeat 1 tab after at least 2 hrs; max = 4 tabs/24 hr PO vitamin B complex (B-Complex tablet) 1 tab PO DAILY Tobacco use date assessed: 03/15/25 Dental Screening Dental Screen Date: 03/15/25 HPI Neck pain HPI Details Patient presents with ongoing cervicalgia and cervical radiculitis. History of cervical radiculopathy and Had been seen by neurology in June; MRI in Dec showed Mild to moderate C5-6, C6-7 degenerative changes. No herniated Discs and no Nerve root cpmpromise. EMG was negative/unremarkable. Patient went to [facility] ED weekend. She was given methocarbamol and methylprednisone. Patient already taking ibuprofen t.i.d.. They also recommended lidocaine patches, OTC. History of gabapentin but she does not appear to be using this any longer. Has been taking gabapentin to help her sleep. [facility] Medical History (Updated 09/30/25 @ 10:29 by Shadi Fuller) Head injury Tricia-menopausal delivery delivered Pineal gland cyst UTI (urinary tract infection) GERD (gastroesophageal reflux disease) Migraine IBS (irritable bowel syndrome) Surgical History (Updated 03/15/25 @ 09:25 by Briana Nugent, [facility]) History of colonoscopy (~2006) History of dermoid cyst excision History of cholecystectomy Family History Mother High blood pressure Maternal Grandmother High blood pressure Alcohol-induced persisting dementia Alcohol abuse Maternal Grandfather Lung cancer Alcohol abuse Paternal Grandmother Cervical cancer Alcohol abuse Paternal Grandfather Suicide Family/Other FH: mental illness Father Alcohol abuse Social History (Updated 03/15/25 @ 09:06 by Radha Arana MA) Household Members: Family Both parents involved: No Caregiver staying overnight: No Housing: House Are you a primary animal caretaker supervisor to a significant other at home: No Do you presently have visiting nurse or other home services: No 75 years or older and lives alone: No Alcohol intake: never Patient Tobacco Use Status: Never used Tobacco e-Cigarette/Vaping Use: Never Used Second Hand Smoke Exposure: No Substance Use Type: Marijuana service: No Current occupational status: unemployed Cognitive needs: No Hearing needs: No Vision needs: No Questionnaire Thrive Questionnaire Date Thrive assessed: 01/04/25 I am a: Patient What is your living situation today?: I have a steady place to live Within the past 12 months, did the food you bought not last and you didn't have the money to get more?: Never true Within the past 12 months, did you worry whether your food would run out before you got money to buy more?: Never true Do you have trouble paying for medicines?: No Do you have trouble getting transportation to medical appointments?: No Do you have trouble paying your heating and electricity bill?: No Do you have trouble taking care of your child, family member or friend?: No Do you have trouble with day-to-day activities such as bathing, preparing meals, shopping, managing finances, etc.?: No Are you currently unemployed and looking for a job?: No Are you interested in more education?: No Please select the resources that you would like help with: None Currently or been in a relationship where the following occur: I choose not to answer THRIVE Score: 0 MILLY-7 AMB Questionnaire MILLY-7 Date MILLY - 7 assessed: 03/15/25 Source: Developed by Drs. Javier Mora, Ayah Heredia, Maksim Lucio and colleagues, with an educational elvis from [facility]. Review of Systems Const Denies chills, Denies fatigue, Denies fever(s), Denies headache(s) and Denies weakness ENT Denies dizziness and Denies headache(s) Card Denies dyspnea Resp Denies cough, Denies dyspnea, Denies wheezing and Denies other (shortness of breath) Musc Denies numbness and Denies tingling Neuro Denies dizziness, Denies headache(s), Denies numbness, Denies tingling and Denies weakness Psych Denies anxiety and Denies depression Endo Denies fatigue Aller/Immun Denies wheezing Physical exam (Primary Care) Vital Signs: Last Vital Signs Temp 97.9 F 09/30/25 10:12 Pulse 115 H 09/30/25 10:12 Resp 19 09/30/25 10:12 BP 104/70 09/30/25 10:12 Pulse Ox 99 09/30/25 10:12 Oxygen Delivery Method Room Air 09/30/25 10:12 BMI result Body Mass Index 24.5 Tobacco/Smoking Status: Tobacco use Status Tobacco use date assessed 03/15/25 09/30/25 10:02 Patient Tobacco Use Status Never used Tobacco 09/30/25 10:02 e-Cigarette/Vaping Use Never Used 09/30/25 10:02 Thrive Assessment: Date of Thrive Assessment Date Thrive assessed 01/04/25 09/30/25 10:02 Currently or been in a relationship where the following occur: I choose not to answer Const General: well developed; No acute distress Nutritional Appearance: well nourished Orientation/consciousness: patient oriented x3 HENMT Head: Yes normocephalic and Yes atraumatic Eyes General: appearance normal, both eyes and all related structures Pupils: Equal, round and reactive pupils present EOM: EOMs intact bilaterally Resp Effort & Inspection: normal respiratory effort Neuro General: patient oriented x3 and gait normal Cranial nerves: Yes Equal, round and reactive pupils present Psych Affect: normal affect Office Procedures Flu Questionnaire Does the patient have a severe egg allergy?: No Does the patient have severe life threatening allergies?: No Does the patient have a fever or illness today?: No Has the patient ever had Guillain-[place] Syndrome?: No Has the patient ever had any past reaction to a flu shot?: No Immunizations Fluarix [id number] (PF) 45 mcg (15 mcg x 3)/0.5 mL IM syringe Performing Provider: Lauro Dior MD Performing Location: [facility] Administered by: WALESKA Mack on 09/30/25 10:22 Dose Route Admin Location Dispensed Lot Number Expiration Date NDC Forging Machine Operator 0.5 mL IM Left Deltoid 0.5 mL [id number] 05/27/26 23711-379-80 [employer] VIS Given Date VIS Provided VIS Publication Date 09/30/25 Single Vaccine 24 Eligibility Eligibility Date Funding Source Not [facility] Eligible 09/30/25 Private Coding Level of Care Code Est Pt Level 3 (48834) Diagnoses Neck pain M54.2 Cervical radiculopathy M54.12 Assessment & Plan Assessment & Plan (1) Neck pain: Code(s): M54.2 - Cervicalgia Category: Medical (2) Cervical radiculopathy: Code(s): M54.12 - Radiculopathy, cervical region Category: Medical Plan Patient presents with ongoing cervicalgia and cervical radiculitis. Slept wrong a couple weeks ago. Tried IcyHot and Motrin. History of cervical radiculopathy and Had been seen by neurology in June; MRI in Dec showed Mild to moderate C5-6, C6-7 degenerative changes. No herniated Discs and no Nerve root cpmpromise. EMG was negative/unremarkable. Patient went to [facility] ED weekend. She was given methocarbamol and methylprednisone. Patient already taking ibuprofen t.i.d.. They also recommended lidocaine patches, OTC. History of gabapentin and she has this at home. She says she started taking it again in the past couple of nights. 200 mg q.h.s. and she can continue this Will continue her methocarbamol. Will switch ibuprofen to naproxen. Ice and heat, 20 minutes at a time as needed. She has finished methylprednisone. Will give her a prednisone taper which she says has helped more in the past Maintain range of motion. Adjust environment to avoid strain Follow-up in 7-10 days Orders: Orders Influenza [id number] Immunization Today Z23 - Encounter for immunization Medications: New methocarbamol 500 mg PO BID 14 tabs 0RF muscle spasm 7 days gabapentin 200 mg (2 x 100 mg) PO BEDTIME 20 caps 0RF 10 days prednisone 4 tabs daily for 4 days, 3 tabs daily for 2 days, 2 tabs daily for 2 days, 1 tab daily for 2 days PO daily; 28 tabs 0RF 10 days prednisone 4 tabs daily for 4 days, 3 tabs daily for 2 days, 2 tabs daily for 2 days, 1 tab daily for 2 days PO daily; 10 days 28 tabs 0RF
[2025-09-30 10:12] VITALS: BP 104/70; PULSE 115; RESP 19; TEMP 36.6; O2SAT 99; BMI 24.5
== END 2025-09-30 10:43 | disposition home or self-care (01) ==
LOC: HO.HMCFM 09:54
PROVIDERS: PCP Family Medicine; Visit Provider Nurse Practitioner Family
DX: M54.2 Cervicalgia (principal); M54.12 Radiculopathy, cervical region; Z23 Encounter for immunization

== ENCOUNTER → 2025-09-30 09:54 | Outpatient (BNVA) | payer OTHER, SELFPAY | PROVIDERS: PCP Family Medicine; Visit Provider Nurse Practitioner Family | DX: M54.12 Radiculopathy, cervical region (principal); M54.2 Cervicalgia; Z23 Encounter for immunization | CPT/HCPCS: 90471; 90656 ==

== ENCOUNTER 2025-10-14 13:34 | Outpatient (AMB) | payer OTHER, SELFPAY ==
--- NOTE | 2025-10-14 14:01 | MHC.PC.OV ---
Vital Signs 10/14/25 14:04 Height 5 ft 4 in Weight 136 lb 6 oz BMI 23.4 BP 120/80 Blood Pressure Location Lt brachial Position Sitting Respiration 16 Pulse 94 Pulse Source Pulse Oximeter Temp 97.8 F Temp Source Oral Intake Visit Reasons: Neck pain Intake Note: patient is scheduled to discuss neck pain Certified Adaptive Physical Educator Required: No Allergies ciprofloxacin (From Cipro) Adverse Reaction (Intermediate, Verified 10/14/25 14:03) Vomiting codine Adverse Reaction (Severe, Uncoded 03/15/25 09:15) Vomiting Medication List - Last Reconciled 10/14/25 by Lauro Dior MD amino acid-multivit w/iron-min pkgs PO cetirizine (Zyrtec) 10 mg PO DAILY PRN cholecalciferol (vitamin D3) 25 mcg PO DAILY coenzyme Q10 60 mg PO DAILY collagen (bovine) 100% ea topical cranberry extract 200 mg PO DAILY elderberry fruit mg PO fluticasone furoate 27.5 mcg/actuation (Flonase Sensimist) 1 spray intranasal DAILY ibuprofen 800 mg PO Q8H PRN 90 days ibuprofen 800 mg PO Q8H magnesium 200 mg PO DAILY methocarbamol 500 mg PO BID 7 days methylprednisolone mg PO multivitamin 1 tab PO DAILY omeprazole 10 mg PO DAILY prednisone 4 tabs daily for 4 days, 3 tabs daily for 2 days, 2 tabs daily for 2 days, 1 tab daily for 2 days PO daily; 10 days riboflavin (vitamin B2) mg PO Saccharomyces boulardii (Daily Probiotic (S. boulardii)) 250 mg PO BID sumatriptan succinate take 1 tab at onset of headache; if no relief may repeat 1 tab after at least 2 hrs; max = 4 tabs/24 hr PO vitamin B complex (B-Complex tablet) 1 tab PO DAILY Tobacco use date assessed: 03/15/25 Dental Screening Dental Screen Date: 03/15/25 HPI Neck pain HPI Details 50 y/o female presents to f/u neck pain. Trialing prednisone taper. Reports ongoing difficulties with cervical radiculopathy. She has also been using ibuprofen. She notes she had trialed physical therapy exercises but she had been unable to tolerate these. She states she does not remember a point of injury. States she had woken up with the pain. Notes prednisone did improve pain but has not improved weakness. She states she is now dropping cups. HPI Comments History of Present Illness Details Documentation assistance for Lauro Dior MD, was provided by Shadi Fuller,? Law Instructor on 10/14/2025 at 2:19 PM EST. I, Dr. Dior, have read, observed, and verified documentation. ?? [facility] Medical History (Updated 09/30/25 @ 10:29 by Shadi Fuller) Head injury Tricia-menopausal delivery delivered Pineal gland cyst UTI (urinary tract infection) GERD (gastroesophageal reflux disease) Migraine IBS (irritable bowel syndrome) Surgical History (Updated 03/15/25 @ 09:25 by Briana Nugent, [facility]) History of colonoscopy (~2006) History of dermoid cyst excision History of cholecystectomy Family History Mother High blood pressure Maternal Grandmother High blood pressure Alcohol-induced persisting dementia Alcohol abuse Maternal Grandfather Lung cancer Alcohol abuse Paternal Grandmother Cervical cancer Alcohol abuse Paternal Grandfather Suicide Family/Other FH: mental illness Father Alcohol abuse Social History (Updated 03/15/25 @ 09:06 by Radha Arana MA) Household Members: Family Both parents involved: No Caregiver staying overnight: No Housing: House Are you a primary critical care specialist to a significant other at home: No Do you presently have visiting nurse or other home services: No 75 years or older and lives alone: No Alcohol intake: never Patient Tobacco Use Status: Never used Tobacco e-Cigarette/Vaping Use: Never Used Second Hand Smoke Exposure: No Substance Use Type: Marijuana service: No Current occupational status: unemployed Cognitive needs: No Hearing needs: No Vision needs: No Questionnaire Thrive Questionnaire Date Thrive assessed: 01/04/25 I am a: Patient What is your living situation today?: I have a steady place to live Within the past 12 months, did the food you bought not last and you didn't have the money to get more?: Never true Within the past 12 months, did you worry whether your food would run out before you got money to buy more?: Never true Do you have trouble paying for medicines?: No Do you have trouble getting transportation to medical appointments?: No Do you have trouble paying your heating and electricity bill?: No Do you have trouble taking care of your child, family member or friend?: No Do you have trouble with day-to-day activities such as bathing, preparing meals, shopping, managing finances, etc.?: No Are you currently unemployed and looking for a job?: No Are you interested in more education?: No Please select the resources that you would like help with: None Currently or been in a relationship where the following occur: I choose not to answer THRIVE Score: 0 AUDIT C Alcohol Use Questionnaire (AUDIT-C) 2. How many drinks containing alcohol do you have on a typical day when you are drinking?: 1 or 2 Total Score: 0 MILLY-7 AMB Questionnaire MILLY-7 Date MILLY - 7 assessed: 03/15/25 Source: Developed by Drs. Javier Mora, Ayah Heredia, Maksim Lucio and colleagues, with an educational elvis from [employer]. Review of Systems Const Denies chills, Denies fatigue, Denies fever(s), Denies headache(s) and Denies weakness ENT Denies dizziness, Denies headache(s) and Reports neck pain Card Denies dyspnea Resp Denies cough, Denies dyspnea, Denies wheezing and Denies other (shortness of breath) Musc Reports neck pain, Denies numbness and Denies tingling Neuro Denies dizziness, Denies headache(s), Denies numbness, Denies tingling and Denies weakness Psych Denies anxiety and Denies depression Endo Denies fatigue Aller/Immun Denies wheezing Physical exam (Primary Care) Vital Signs: Last Vital Signs Temp 97.8 F 10/14/25 14:04 Pulse 94 10/14/25 14:04 Resp 16 10/14/25 14:04 BP 120/80 10/14/25 14:04 BMI result Body Mass Index 23.4 Tobacco/Smoking Status: Tobacco use Status Tobacco use date assessed 03/15/25 10/14/25 14:02 Patient Tobacco Use Status Never used Tobacco 10/14/25 14:02 e-Cigarette/Vaping Use Never Used 10/14/25 14:02 Thrive Assessment: Date of Thrive Assessment Date Thrive assessed 01/04/25 10/14/25 14:02 Currently or been in a relationship where the following occur: I choose not to answer Const General: well developed; No acute distress Nutritional Appearance: well nourished Orientation/consciousness: patient oriented x3 HENMT Head: Yes normocephalic and Yes atraumatic Eyes General: appearance normal, both eyes and all related structures Pupils: Equal, round and reactive pupils present EOM: EOMs intact bilaterally Resp Effort & Inspection: normal respiratory effort Neuro General: patient oriented x3 and gait normal Cranial nerves: Yes Equal, round and reactive pupils present Psych Affect: normal affect Coding Level of Care Code Est Pt Level 3 (77778) Diagnoses Cervical radiculopathy M54.12 Assessment & Plan Assessment & Plan (1) Cervical radiculopathy: Code(s): M54.12 - Radiculopathy, cervical region Category: Medical Plan: 50-year-old right-handed woman presents for follow-up of right cervical radiculopathy. Had given her a prednisone taper and she is using ibuprofen. She tried physical therapy but was unable to tolerate this. She notes that the prednisone did improve pain but has not improved strength which is actually worsening. She says she is now dropping cups. She had an MRI months prior to her most recent exacerbation of neck pain and stiffness. Since then Decreased strength in arm and hand. Will seek a new MRI as she has clearly had deterioration in exam findings. Referred to neuro spine Will give her 1 more prednisone taper. We discussed that should avoid using any further prednisone or steroids if possible Continue ibuprofen Orders: Orders MR cervical spine wo con Today M54.12 - Radiculopathy, cervical region Referrals Neurosurgery Referral M54.12 - Radiculopathy, cervical region Medications: Refilled prednisone 4 tabs daily for 4 days, 3 tabs daily for 2 days, 2 tabs daily for 2 days, 1 tab daily for 2 days PO daily; 28 tabs 0RF 10 days M54.12 - Radiculopathy, cervical region
[2025-10-14 14:04] VITALS: BP 120/80; PULSE 94; RESP 16; TEMP 36.6; BMI 23.4
== END 2025-10-14 14:32 | disposition home or self-care (01) ==
LOC: HO.HMCFM 13:35
PROVIDERS: PCP Family Medicine; Visit Provider Family Medicine
DX: M54.12 Radiculopathy, cervical region (principal)